=== PATIENT | male | born 1990 | race African-American/Black ===

== ENCOUNTER 2021-10-06 12:56 | Emergency (ER) | payer OTHER ==
[2021-10-06 13:05] VITALS: RESP 16; TEMP 97.8
--- NOTE | 2021-10-06 13:28 | XR ---
EXAMINATION TYPE: XR foot complete RT DATE OF EXAM: 10/06/2021 CLINICAL HISTORY: pain TECHNIQUE: Frontal, lateral and oblique images of the right foot are obtained. COMPARISON: None. FINDINGS: There is no acute fracture/dislocation evident. The joint spaces appear within normal morgan its. The overlying soft tissue appears unremarkable. IMPRESSION: There is no acute fracture or dislocation. ICD 10 NO FRACTURE, INITIAL EVALUATION
[2021-10-06] MEDS ORDERED: IBUPROFEN 600 MG TAB PO STA (13:36)
--- NOTE | 2021-10-06 13:39 | ED ---
General Adult HPI - General Chief complaint: Extremity Injury, Lower Stated complaint: foot injury Time Seen by Provider: 10/06/21 13:09 Source: patient, RN notes reviewed Mode of arrival: wheelchair Limitations: no limitations - History of Present Illness Initial comments: 31-year-old male presents to the emergency room for right foot pain. Patient wa s carrying a TV and he dropped it on his right foot just prior to arrival. Patient states it is painful to walk on the right foot. He did take Tylenol prior to arrival. He denies any swelling. He denies any other injuries.Patient has no other complaints at this time including shortness of breath, chest pain, abdominal pain, nausea or vomiting, headache, or visual changes. - Related Data Home Medications Medication Instructions Recorded Confirmed Ibuprofen [Motrin] 800 mg PO TID PRN 08/09/15 08/09/15 methylPREDNISolone See Taper PO DAILY 08/09/15 08/09/15 [Methylprednisolone] Allergies Allergy/AdvReac Type Severity Reaction Status Date / Time No Known Allergies Allergy Verified 10/06/21 13:05 Review of Systems ROS Statement: Those systems with pertinent positive or pertinent negative responses have been documented in the HPI. ROS Other: All systems not noted in ROS Statement are negative. Past Medical History Past Medical History: No Reported History History of Any Multi-Drug Resistant Organisms: None Reported Past Surgical History: Hernia Repair Past Psychological History: No Psychological Hx Reported Smoking Status: Current every day smoker Past Alcohol Use History: Occasional Past Drug Use History: Marijuana General Exam Limitations: no limitations General appearance: alert, in no apparent distress Head exam: Present: atraumatic Eye exam: Present: normal appearance, PERRL, EOMI. Absent: scleral icterus, conjunctival injection ENT exam: Present: normal exam, mucous membranes moist Neck exam: Present: normal inspection. Absent: tenderness, full ROM Respiratory exam: Absent: respiratory distress Extremities exam: Present: full ROM (Full range of motion of the right foot.), tenderness (Tenderness along the dorsal first metatarsal), normal capillary refill (Capillary fill less than 2 seconds, DP pulse 2+ right lower extremity), other. Absent: joint swelling (No edema or ecchymosis noted of the right foot.) Course Vital Signs 10/06/21 13:02 Temperature 97.8 F Pulse Rate 92 Respiratory 16 Rate Blood Pressure 138/67 O2 Sat by Pulse 98 Oximetry Medical Decision Making - Medical Decision Making X-rays negative for fracture or dislocation. Suspect soft tissue injury. Patient can follow-up with primary care. He will be given a fracture shoe. He will return here for any worsening symptoms. Disposition Clinical Impression: Contusion, foot Disposition: HOME SELF-CARE Condition: Good Instructions (If sedation given, give patient instructions): Foot Contusion (ED) Additional Instructions: Rest ice and elevate the right foot. Take Motrin and Tylenol for pain. Follow- up with your doctor. Return to the emergency room for any worsening symptoms. Is patient prescribed a controlled substance at d/c from ED?: No Referrals: Mary Jo Mercado MD [REFERRING] - 1-2 days Time of Disposition: 13:39
[2021-10-06 14:21] VITALS: BP 133/67; PULSE 82
== END 2021-10-06 14:05 | disposition home or self-care (01) ==
LOC: EC 12:56
DX: S90.31XA Contusion of right foot, initial encounter (principal); F17.200 Nicotine dependence, unspecified, uncomplicated; F12.90 Cannabis use, unspecified, uncomplicated; W20.8XXA Other cause of strike by thrown, projected or falling object, initial encounter
CPT/HCPCS: 99283